=== PATIENT | male | born 1970 | race Two or more races ===

== ENCOUNTER 2020-05-07 22:28 | Emergency (ER) | payer OTHER ==
[~2020-05-07] VITALS: Ht 177.8 cm; Wt 97.5 kg
[2020-05-07] MEDS ORDERED: GELATIN SPONGE,ABSORBABLE 1 SPONGE SPONGE TP ONE ×2 (22:48→23:07)
--- NOTE | 2020-05-07 22:58 | NUR ---
ANNIE FROM HOME TO ER BED 6. AAOX4. NOT IN RESP DISTRESS. CAME IN FOR SCROTAL BLEEDING FROM A SMALL WOUND WHICH HAS BEEN BLEEDING SINCE THIS AFTERNOON. PT REPORTS THAT HE IS ON BLOOD THINNER. WAS AT BEDSIDE FOR EVAL.
--- NOTE | 2020-05-07 23:36 | NUR ---
Patient discharged to home in stable condition. Written and verbal after care instructions given. Patient verbalizes understanding of instruction. Pt ambulatory with a steady gait
[2020-05-07 23:37] VITALS: BP 114/66
== END 2020-05-07 23:37 | disposition home or self-care (01) ==
LOC: ER 22:31
DX: S30.823A Blister (nonthermal) of scrotum and testes, initial encounter (principal); I86.1 Scrotal varices; I10 Essential (primary) hypertension; E11.9 Type 2 diabetes mellitus without complications; N40.0 Benign prostatic hyperplasia without lower urinary tract symptoms; Z95.4 Presence of other heart-valve replacement; X58.XXXA Exposure to other specified factors, initial encounter; Y93.89 Activity, other specified; Y92.89 Other specified places as the place of occurrence of the external cause; Y99.8 Other external cause status